=== PATIENT | female | born 1950 | race Caucasian/White ===

== ENCOUNTER 2021-09-13 15:09 | Emergency (ER) | payer OTHER ==
[2021-09-13] MEDS ORDERED: ONDANSETRON 4 MG/2 ML VIAL ONE (15:47)
[2021-09-13] MEDS ORDERED: MORPHINE 4 MG/ML SYR ONE (15:47)
[2021-09-13 16:19] LABS: Absolute Lymphocytes (CBC) 1.2 K/uL (0.7-4.9); Basophils % 0.9 % (0-1.3); Hematocrit 41.9 % (36.0-45.0); Lymphocytes % 8.7 % (15.3-44.8); MPV 8.5 fL (7.6-11.3)
--- NOTE | 2021-09-13 16:25 | RAD REPORT ---
EXAM DESCRIPTION: RAD - Chest Single View - 09/13/2021 4:14 pm CLINICAL HISTORY: fall COMPARISON: Chest Pa And Lat (2 Views) dated 03/07/2021; Chest Single View dated 02/08/2018; Chest Pa A nd Lat (2 Views) dated 02/04/2018 FINDINGS: Lines: None. Lungs: Increased prominence of the pulmonary interstitium. No edema or consolidation. Pleural: No significant pleural effusions or pneumothorax. Cardiac: The heart size is within normal limits. Bones: No acute fractures. Other: IMPRESSION: No acute cardiopulmonary disease.
[2021-09-13 16:40] LABS: Potassium 2.8 mmol/L (3.5-5.1)
[2021-09-13] MEDS ORDERED: propofoL 200 MG/20 ML VIAL IV ONE (16:51)
[2021-09-13] MEDS ORDERED: NA CHLORIDE 0.9% 1,000 ML ONE ×2 (16:51→17:23)
--- NOTE | 2021-09-13 17:15 | RAD REPORT ---
EXAM DESCRIPTION: RAD - Humerus Right - 09/13/2021 4:14 pm CLINICAL HISTORY: PAIN COMPARISON: Forearm Right dated 09/13/2021; Chest Single View dated 09/13/2021; Shoulder Rt Wo Cont dated 04/11/2021 FINDINGS: Possible right shoulder dislocation. This is not well assessed due to positioning. No carissa chaya fractures identified. IMPRESSION: Difficult to exclude a dislocated right shoulder. No humerus fractures identified, vicki er.
--- NOTE | 2021-09-13 17:16 | RAD REPORT ---
EXAM DESCRIPTION: RAD - Forearm Right - 09/13/2021 4:14 pm CLINICAL HISTORY: PAIN COMPARISON: No comparisons FINDINGS: No acute fracture. No malalignment. No significant focal degenerative changes. IMPRESSION: No acute osseous abnormality involving the right forearm.
[2021-09-13] MEDS ORDERED: KCL 20 MEQ/100 mL IVPB 20 MEQ/100 ML BAG IV ONE (17:23)
--- NOTE | 2021-09-13 17:25 | RAD REPORT ---
EXAM DESCRIPTION: RAD - Shoulder Right 2 View - 09/13/2021 5:16 pm CLINICAL HISTORY: post reduction COMPARISON: No comparisons FINDINGS: High-riding humeral head consistent with rotator cuff pathology. The shoulder is located o n these frontal views. No fracture seen. IMPRESSION: The shoulder is located on these frontal views. No fracture identified.
--- NOTE | 2021-09-13 18:47 | RAD REPORT ---
EXAM DESCRIPTION: CT - CTHCSPWOC - 09/13/2021 6:32 pm CLINICAL HISTORY: Trauma, head and neck injury. fall COMPARISON: No comparisonsThorax W/ Con dated 09/13/2021 TECHNIQUE: Axial 5 mm thick images of the head were obtained. Axial 2 mm thick images of the cervical spine were obtained with sagittal and coronal reconstruction images generated and reviewed. All CT scans are performed using dose optimization technique as appropriate and may include automated exposure control or mA/KV adjustment according to patient size. FINDINGS: CT HEAD WITHOUT CONTRAST: No acute hemorrhage, hydrocephalus or extra-axial collection is identified.No areas of brain edema or midline shift. The paranasal sinuses and mastoids are clear.The calvarium is intact. CT CERVICAL SPINE WITHOUT CONTRAST: No fracture or subluxation.No prevertebral soft tissues swelling is identified. Retrolisthesis of C5 on C6 is likely related underlying degenerative changes. Varying degrees of neural foraminal narrowin g noted. Mild central spinal stenosis is present at C5-6 . T1 and T2 compression deformities are note d IMPRESSION: No acute intracranial or cervical spine findings.
--- NOTE | 2021-09-13 18:53 | RAD REPORT ---
EXAM DESCRIPTION: CT - Thorax W/ Con - 09/13/2021 6:33 pm CLINICAL HISTORY: right shoulder pain/dislocation COMPARISON: Chest For Pe Angio dated 03/08/2021 FINDINGS: Chest Wall: Probably benign right thyroid nodule. Lungs: No acute abnormality. Pleura: No significant effusions or pneumothorax. Mediastinum/dona: No pathologic lymphadenopathy. Pulmonary arteries/Aorta: No filling defect identified. No aortic aneurysm. Heart: No significant pericardial effusion. Normal heart size. Upper abdomen: Subcentimeter low-density liver lesion which is likely benign. Bones: Remote right-sided rib fractures.T1 and T2 compression fractures are remote. Question acute no ndisplaced left tenth rib fracture. All CT scans are performed using dose optimization technique as appropriate and may include automated exposure control or mA/KV adjustment according to patient size. IMPRESSION: Question acute nondisplaced left tenth rib fracture. No other evidence of significant tr auma is identified.
--- NOTE | 2021-09-13 19:53 | ER ---
Nurse's Notes [facility] Name: Joi Aguilera Age: 71 yrs Sex: Female : 1950 Arrival Date: 09/13/2021 Time: 15:12 Bed 24 Private MD: Diagnosis: Other dislocation of right shoulder joint;Fracture of thoracic vertebra-compression, T1 and T2;Paresthesia of skin-right hand;Weakness-Right hand Presentation: 09/13 15:12 Chief complaint: EMS states: patient tripped and fell in the parking lot. It is ap3 reported that the patient fell onto her right elbow and right shoulder. patient is moaning in pain. EMS established a 20g in the left hand, and administered 100mcg of fentanyl. Coronavirus screen: Vaccine status: Patient reports receiving the 2nd dose of the covid vaccine. and booster. Ebola Screen: No symptoms or risks identified at this time. Initial Sepsis Screen: Does the patient meet any 2 criteria? No. Patient's initial sepsis screen is negative. Does the patient have a suspected source of infection? No. Patient's initial sepsis screen is negative. Risk Assessment: Do you want to hurt yourself or someone else? Patient reports no desire to harm self or others. Onset of symptoms was September 13, 2021. Care prior to arrival: Medication(s) given: fentanyl 100mcg IV initiated. 20 GA, in the left hand. 15:12 Method Of Arrival: EMS: [facility] ap3 15:12 Acuity: MAURIZIO 3 ap3 Triage Assessment: 15:17 General: Appears distressed, uncomfortable, Behavior is anxious, crying, fussy. Pain: ap3 Complains of pain in right arm Pain currently is 10 out of 10 on a pain scale. EENT: No signs and/or symptoms were reported regarding the EENT system. Neuro: Level of Consciousness is awake, alert, obeys commands, Oriented to person, place, time, situation, Appropriate for age Speech is normal. Cardiovascular: Capillary refill < 3 seconds Patient's skin is warm and dry. Respiratory: Airway is patent Respiratory effort is even, unlabored, Respiratory pattern is regular, symmetrical. Historical: - Allergies: 15:15 Tetanus Vaccines \T\ Toxoid; ap3 - PMHx: 15:15 Hypertension; Osteoarthritis; Hypercholesterolemia; ap3 - Immunization history:: Adult Immunizations up to date, Client reports receiving the 2nd dose of the Covid vaccine, and booster. - Social history:: Smoking status: Patient denies any tobacco usage or history of. Screenin:16 Abuse screen: Denies threats or abuse. Nutritional screening: No deficits noted. ap3 Tuberculosis screening: No symptoms or risk factors identified. Fall Risk Fall in past 12 months (25 points). No secondary diagnosis (0 pts). IV access (20 points). Ambulatory Aid- None/Bed Rest/Nurse Assist (0 pts). Gait- Weak (10 pts.). Mental Status- Oriented to own ability (0 pts). Total Lazar Fall Scale indicates High Risk Score (45 or more points). Fall prevention measures have been instituted. Side Rails Up X 2 Placed Close to Nursing Station Frequent Obs/Assessments Occuring As available patient and family educated on Fall Prevention Program and Strategies. Assessment: 16:05 Reassessment: Patient and/or family updated on plan of care and expected duration. Pain ap3 level reassessed. Patient is alert, oriented x 3, equal unlabored respirations, skin warm/dry/pink. Patient states symptoms have not improved. 16:40 Reassessment: ERP at bedside performing conscious sedation. ld1 18:30 Reassessment: Pt with CT. ld1 Vital Signs: 15:12 BP 143 / 55; Pulse 70; Pulse Ox 98% on R/A; ap3 15:12 Pain 10/10; ap3 15:16 Weight 95.25 kg; Height 5 ft. 0 in. (152.40 cm); ap3 16:04 BP 155 / 58; Pulse 84; Pulse Ox 99% on R/A; ap3 16:17 BP 130 / 56; Pulse 78; Resp 18; Pulse Ox 100% on 15% Non-rebreather mask; ld1 16:30 BP 134 / 42; Pulse 75; Resp 18; Pulse Ox 100% on 15% Non-rebreather mask; ld1 16:50 BP 118 / 60; Pulse 78; Resp 18; Pulse Ox 100% on 15% Non-rebreather mask; ld1 17:00 BP 136 / 55; Pulse 79; Resp 18; Pulse Ox 100% on 15% Non-rebreather mask; ld1 17:30 BP 135 / 59; Pulse 84; Resp 16; Pulse Ox 93% on R/A; ld1 18:00 BP 130 / 54; Pulse 87; Resp 18; Pulse Ox 96% on 3 lpm NC; ld1 15:16 Body Mass Index 41.01 (95.25 kg, 152.40 cm) ap3 ED Course: 15:12 Patient arrived in ED. eb 15:15 Triage completed. ap3 15:17 Arm band placed on left wrist. ap3 15:18 José Antonio Hastings PA is PHCP. cp 15:18 Bladimir Malave MD is Attending Physician. cp 15:18 Patient has correct armband on for positive identification. Bed in low position. Call ap3 light in reach. Side rails up X2. Pulse ox on. NIBP on. Door closed. Noise minimized. 16:14 XRAY Chest (1 view) In Process Unspecified. EDMS 16:14 XRAY Humerus RIGHT In Process Unspecified. EDMS 16:14 XRAY Forearm RIGHT In Process Unspecified. EDMS 16:56 Claudette Mcneil, ELIAS is Primary Nurse. ld1 17:16 XRAY Shoulder RIGHT 2 view In Process Unspecified. EDMS 18:06 Primary Nurse role handed off by Claudette Mcneil, RN ld1 18:23 Inserted saline lock: 20 gauge in left antecubital area, using aseptic technique. Blood mt collected. 18:29 Claudette Mcneil, ELIAS is Primary Nurse. ld1 18:32 CT Head C Spine In Process Unspecified. EDMS 18:33 CT Chest W/ Con In Process Unspecified. EDMS 19:30 Initiated transfer at [facility] with Winnie Mars. Call was connected with tt3 JUAN JOSÉ العراقي, pt provider for further consultation. 19:37 Winnie Mars called back with a physician to speak with JUAN JOSÉ العراقي, pt provider tt3 regarding the transfer request. 19:42 Winnie Mars gave admin approval. The pt is going to [facility] ER. The tt3 accepting physician is Dr. Colindres. Nurse to call report to . Face sheet and MOT to be faxed to [phone]. 20:58 No provider procedures requiring assistance completed. Patient transferred, IV remains mr2 in place. Administered Medications: 15:30 Drug: morphine 4 mg Route: IVP; Site: left hand; ld1 15:31 Follow up: Response: No adverse reaction ld1 15:30 Drug: Zofran (Ondansetron) 4 mg Route: IVP; Site: left hand; ld1 15:31 Follow up: Response: No adverse reaction ld1 16:50 Drug: Propofol 100 mg {Note: Administered by Bladimir Malave MD..} Route: IVP; Site: ld1 left hand; 17:02 Follow up: Response: No adverse reaction ld1 16:57 Drug: NS 0.9% 500 ml Route: IV; Rate: 100 ml/hr; Site: left hand; ld1 17:00 Drug: Potassium Chloride 20 mEq Route: IV; Rate: calculated rate; Site: left hand; ld1 17:01 Not Given (Duplicate Order): Propofol 100 mg IVP once ld1 19:38 Drug: Potassium Effervescent Tablet 50 mEq Route: PO; mr2 Outcome: 19:52 ER care complete, transfer ordered by MD. elias 20:59 Transferred to [facility]. mr2 20:59 Condition: stable 20:59 Instructed on the need for transfer. 20:59 Patient left the ED. mr2 Signatures: Dispatcher [employer] EDMS José Antonio Hastings PA PA cp Thompson, Moriah mt Prokisch, Amanda, RN RN ap3 Tory Milton Tyler tt3 Claudette Mcneil RN RN ld1 Feliz Frost RN RN mr2 Corrections: (The following items were deleted from the chart) 15:16 15:15 PMHx: Hypertensive disorder; ap3 ap3
--- NOTE | 2021-09-13 19:53 | EDPHYS ---
Physician Documentation [facility] Name: Joi Aguilera Age: 71 yrs Sex: Female : 1950 Arrival Date: 09/13/2021 Time: 15:12 Bed 24 Private MD: ED Physician Bladimir Malave HPI: 09/13 15:25 This 71 yrs old Female presents to ER via EMS with complaints of Arm Injury. cp 15:25 The patient or guardian complains of decreased range of motion, injury. The complaints cp affect the right shoulder. Context: The problem was sustained at work, resulted from a fall, while walking. Onset: The symptoms/episode began/occurred just prior to arrival. Treatment prior to arrival includes: EMS administered 100 mcg fentanyl IV. Associated signs and symptoms: Pertinent positives: numbness, of the right hand. Patient reports while walking in parking lot, trip and fall onto outstretched right arm causing injury to right shoulder and right elbow. Patient reports she did hit her head but denies LOC. Historical: - Allergies: 15:15 Tetanus Vaccines \T\ Toxoid; ap3 - PMHx: 15:15 Hypertension; Osteoarthritis; Hypercholesterolemia; ap3 - Immunization history:: Adult Immunizations up to date, Client reports receiving the 2nd dose of the Covid vaccine, and booster. - Social history:: Smoking status: Patient denies any tobacco usage or history of. ROS: 15:30 Constitutional: Negative for body aches, chills, fever, poor PO intake. cp 15:30 Eyes: Negative for injury, pain, redness, and discharge. cp 15:30 Cardiovascular: Negative for chest pain, edema, palpitations. 15:30 Respiratory: Negative for cough, shortness of breath, wheezing. 15:30 Abdomen/GI: Negative for abdominal pain, nausea, vomiting, and diarrhea. 15:30 MS/extremity: Positive for injury or acute deformity, decreased range of motion, pain, of the right shoulder. 15:30 Neuro: Positive for numbness, weakness, of the right hand, Negative for altered mental status, dizziness, headache, loss of consciousness, syncope. 15:30 All other systems are negative. Exam: 15:35 Constitutional: The patient appears in no acute distress, alert, awake, cp non-diaphoretic, well developed, well nourished, in obvious pain, uncomfortable. 15:35 Head/Face: Normocephalic, atraumatic. cp 15:35 Eyes: Periorbital structures: appear normal, Pupils: equal, round, and reactive to light and accomodation, Extraocular movements: intact throughout, Conjunctiva: normal, no exudate, no injection, Lids and lashes: appear normal, bilaterally. 15:35 ENT: External ear(s): are unremarkable, Nose: is normal, Posterior pharynx: Airway: no evidence of obstruction, patent. 15:35 Neck: C-spine: vertebral tenderness, is not appreciated, crepitus, is not appreciated, ROM/movement: pain, is not appreciated, limited range of motion, is not appreciated. 15:35 Chest/axilla: Inspection: normal, Palpation: crepitus, is not appreciated, tenderness, that is moderate, of the right lateral posterior chest and right lateral anterior chest. 15:35 Cardiovascular: Rate: normal, Rhythm: regular, Edema: is not appreciated, JVD: is not appreciated. 15:35 Respiratory: the patient does not display signs of respiratory distress, Respirations: normal, no use of accessory muscles, no retractions, labored breathing, is not present, Breath sounds: are clear throughout, no decreased breath sounds, no stridor, no wheezing. 15:35 Abdomen/GI: Inspection: abdomen appears normal, Bowel sounds: active, all quadrants, Palpation: abdomen is soft and non-tender, in all quadrants. 15:35 Back: pain, is absent, ROM is normal. 15:35 Musculoskeletal/extremity: Extremities: grossly normal except: noted in the right shoulder: decreased ROM, pain, tenderness, ROM: limited passive range of motion, in the right shoulder, limited passive range of motion due to pain, in the right shoulder, Pulses: noted to be 2+ in the right radial artery and left radial artery, the right hand decreased sensation. 15:35 Neuro: Orientation: to person, place \T\ time. Mentation: is normal. Vital Signs: 15:12 BP 143 / 55; Pulse 70; Pulse Ox 98% on R/A; ap3 15:12 Pain 10/10; ap3 15:16 Weight 95.25 kg; Height 5 ft. 0 in. (152.40 cm); ap3 16:04 BP 155 / 58; Pulse 84; Pulse Ox 99% on R/A; ap3 16:17 BP 130 / 56; Pulse 78; Resp 18; Pulse Ox 100% on 15% Non-rebreather mask; ld1 16:30 BP 134 / 42; Pulse 75; Resp 18; Pulse Ox 100% on 15% Non-rebreather mask; ld1 16:50 BP 118 / 60; Pulse 78; Resp 18; Pulse Ox 100% on 15% Non-rebreather mask; ld1 17:00 BP 136 / 55; Pulse 79; Resp 18; Pulse Ox 100% on 15% Non-rebreather mask; ld1 17:30 BP 135 / 59; Pulse 84; Resp 16; Pulse Ox 93% on R/A; ld1 18:00 BP 130 / 54; Pulse 87; Resp 18; Pulse Ox 96% on 3 lpm NC; ld1 15:16 Body Mass Index 41.01 (95.25 kg, 152.40 cm) ap3 MDM: 15:21 Patient medically screened. cp 16:00 Differential diagnosis: dislocation, open fracture, closed fracture, multiple trauma. cp 19:25 Data reviewed: vital signs, nurses notes, lab test result(s), radiologic studies, CT cp scan, plain films, I have discussed the patient's presentation/case with the attending Emergency Department Physician; and as a result, I will transfer patient. Test interpretation: by ED physician or midlevel provider: plain radiologic studies. 09/13 15:20 Order name: Basic Metabolic Panel; Complete Time: 16:44 cp 09/13 16:44 Interpretation: Normal except: K 2.8; CL 108; GLUC 162; BUN 20; GFR 53. cp 09/13 15:20 Order name: CBC with Diff; Complete Time: 16:44 cp 09/13 16:44 Interpretation: Normal except: WBC 13.40; MARLYN% 83.4; LYM% 8.7; NEUT A 11.2. cp 09/13 15:20 Order name: XRAY Chest (1 view); Complete Time: 16:44 cp 09/13 15:20 Order name: Type And Screen; Complete Time: 17:39 cp 09/13 16:54 Order name: Magnesium cp 09/13 16:55 Order name: Magnesium; Complete Time: 17:39 EDMS 09/13 15:20 Order name: XRAY Humerus RIGHT; Complete Time: 17:39 cp 09/13 17:39 Interpretation: Report reviewed. cp 09/13 15:20 Order name: XRAY Forearm RIGHT; Complete Time: 17:39 cp 09/13 17:40 Interpretation: Reviewed. cp 09/13 16:54 Order name: XRAY Shoulder RIGHT 2 view; Complete Time: 17:39 cp 09/13 17:40 Interpretation: Reviewed. cp 09/13 17:44 Order name: CT Head C Spine; Complete Time: 19:21 cp 09/13 18:03 Order name: CT Chest W/ Con; Complete Time: 19:21 cp 09/13 15:20 Order name: Labs collected and sent; Complete Time: 17:02 cp 09/13 16:12 Order name: Oxygen Per Protocol; Complete Time: 17:02 cp 09/13 16:16 Order name: Labs - recollect needed: recollect t\T\s; Complete Time: 17:02 eb 09/13 16:54 Order name: EKG; Complete Time: 16:55 cp 09/13 16:54 Order name: EKG - Nurse/Tech; Complete Time: 16:57 cp Administered Medications: 15:30 Drug: morphine 4 mg Route: IVP; Site: left hand; ld1 15:31 Follow up: Response: No adverse reaction ld1 15:30 Drug: Zofran (Ondansetron) 4 mg Route: IVP; Site: left hand; ld1 15:31 Follow up: Response: No adverse reaction ld1 16:50 Drug: Propofol 100 mg {Note: Administered by Bladimir Malave MD..} Route: IVP; Site: ld1 left hand; 17:02 Follow up: Response: No adverse reaction ld1 16:57 Drug: NS 0.9% 500 ml Route: IV; Rate: 100 ml/hr; Site: left hand; ld1 17:00 Drug: Potassium Chloride 20 mEq Route: IV; Rate: calculated rate; Site: left hand; ld1 17:01 Not Given (Duplicate Order): Propofol 100 mg IVP once ld1 19:38 Drug: Potassium Effervescent Tablet 50 mEq Route: PO; mr2 Disposition: 09/14 12:53 Co-signature as Attending Physician, Bladimir Malave MD I agree with the assessment and kdr plan of care. Chart complete. Disposition Summary: 09/13/21 19:52 Transfer Ordered Transfer Location: [facility] cp Reason: Higher level of care cp Condition: Stable cp Problem: new cp Symptoms: have improved cp Accepting Physician: (09/13/21 20:59) mr2 Diagnosis - Other dislocation of right shoulder joint cp - Fracture of thoracic vertebra - compression, T1 and T2 cp - Paresthesia of skin - right hand cp - Weakness - Right hand cp Forms: - Medication Reconciliation Form cp - SBAR form cp Signatures: Dispatcher [employer] EDTN Bladimir Malave MD MD kdr José Antonio Hastings PA PA cp Alysa Stout RN RN ap3 Tory Milton Lauren, RN RN ld1 Feliz Frost RN RN mr2 Corrections: (The following items were deleted from the chart) 09/13 15:16 15:15 PMHx: Hypertensive disorder; ap3 ap3 17:16 16:54 Shoulder Left 2 View+RAD.RAD.BRZ ordered. EDTN EDMS 19:53 19:52 DR elias cp 19:58 19:51 Abdomen Pelvis W Con+CT.RAD.BRZ ordered. EDMS EDMS 19:58 19:51 Head Angio+CT.RAD.BRZ ordered. EDMS EDMS 19:58 19:51 Neck Angio+CT.RAD.BRZ ordered. EDMS EDMS 20:23 20:06 Abdomen Pelvis Wo Con+CT.RAD.BRZ ordered. EDTN EDMS 20:59 19:53 DR elias mr2 09/14 04:10 09/13 19:00 Data reviewed: vital signs, nurses notes, lab test result(s), radiologic cp studies, CT scan, plain films, I have discussed the patient's presentation/case with the attending Emergency Department Physician; and as a result, I will transfer patient, cp 09/14 04:10 09/13 19:00 Test interpretation: by ED physician or midlevel provider: plain radiologic cp studies, cp
[2021-09-13] MEDS ORDERED: POTASSIUM 25 MEQ EFFERV TAB ONE (19:57)
[2021-09-13 21:16] VITALS: BP 130/54; O2SAT 96
== END 2021-09-13 20:59 | disposition short-term general hospital (02) ==
LOC: ER 15:09
DX: S43.084A Other dislocation of right shoulder joint, initial encounter (principal); S22.019A Unspecified fracture of first thoracic vertebra, initial encounter for closed fracture; S22.029A Unspecified fracture of second thoracic vertebra, initial encounter for closed fracture; R20.2 Paresthesia of skin; R53.1 Weakness; W01.0XXA Fall on same level from slipping, tripping and stumbling without subsequent striking against object, initial encounter; Y93.01 Activity, walking, marching and hiking; Y92.481 Parking lot as the place of occurrence of the external cause; Y99.8 Other external cause status; I10 Essential (primary) hypertension; Z88.7 Allergy status to serum and vaccine
CPT/HCPCS: 85025; 80048; 36415; 86900; 83735; 86850; 86901; 70450; 72125; 71260; 71045; 73090; 73060; 73030; 96375; 96374; 99285; J2704; J3480; J7030 ×2; J2405